=== PATIENT | male | born 1980 | race Caucasian/White ===

== ENCOUNTER 2017-01-18 16:41 | Inpatient (IN) | payer MEDICARE, OTHER ==
[~2017-01-18] VITALS: Ht 177.8 cm; Wt 92.1 kg
[~2017-01-18 16:41] MED LIST: BENZ1TAB PO; DEPA500T3 PO; FEXO180 PO; HALO5 PO; PAXI20TA26 PO; RANI150C PO; SERO400T3 OR
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
[2017-01-18 18:57] VITALS: BP 118/75; PULSE 81; RESP 17; O2SAT 99
[2017-01-18 19:10] LABS: AUTOMATED NEUTROPHIL # 5.8 TH/MM3 (1.8-7.7); BASOPHIL % 0.3 % (0.0-2.0); EOSINOPHIL # 0.1 TH/MM3 (0-0.4); EOSINOPHIL % 0.8 % (0.0-4.0); HEMATOCRIT 42.3 % (39.0-51.0); HEMO FLAGS DIFF FINAL; LYMPH % 17.9 % (9.0-44.0); LYMPHOCYTE # 1.4 TH/MM3 (1.0-4.8); MEAN CELL VOLUME 95.7 FL (80.0-100.0); MEAN CORPUSCULAR HEMOGLOBIN 33.2 PG (27.0-34.0); MEAN CORPUSCULAR HGB CONC 34.6 % (32.0-36.0); PLATELET COUNT 160 TH/MM3 (150-450); RED BLOOD COUNT 4.42 MIL/MM3 (4.50-5.90); RED CELL DISTRIBUTION WIDTH 13.1 % (11.6-17.2); WHITE BLOOD COUNT 7.9 TH/MM3 (4.0-11.0)
[2017-01-18 19:35] LABS: ANION GAP 7 MEQ/L (5-15)
[2017-01-18 19:37] LABS: ACETAMINOPHEN LESS THAN 2.0 MCG/ML (10.0-30.0); ALCOHOL LESS THAN 3 MG/DL (0-5); BICARBONATE 27.9 MEQ/L (21.0-32.0); BLOOD UREA NITROGEN 16 MG/DL (7-18); CHLORIDE 104 MEQ/L (98-107); GLOMERULAR FILTRATION RATE 122 ML/MIN (>89); SODIUM (NA) 139 MEQ/L (136-145)
[2017-01-18] MEDS ORDERED: DEPA500T PO (20:55)
[2017-01-18] MEDS ORDERED: TRAZ100T6 PO (20:55)
[2017-01-18] MEDS ORDERED: BENZ0.5T PO (20:55)
[2017-01-18] MEDS ORDERED: SERO200T PO (20:55)
[2017-01-18] MEDS ORDERED: CLON0.5T PO (20:55)
[2017-01-18] MEDS ORDERED: PARO20TA2 PO (20:55)
[2017-01-18 21:11] VITALS: BP 122/71; PULSE 95; RESP 18; TEMP 99; O2SAT 100
[2017-01-18] MEDS ORDERED: BENZTROPINE MESYLATE 2 MG TAB PO ONE (23:00)
[2017-01-18] MEDS ORDERED: clonazePAM 0.5 MG TAB PO ONE (23:00)
[2017-01-18] MEDS ORDERED: PARoxetine HCL 20 MG TAB PO ONE (23:00)
[2017-01-18] MEDS ORDERED: DIVALPROEX DR 500 MG TABEC PO ONE (23:00)
[2017-01-18] MEDS ORDERED: QUEtiapine FUMARATE 200 MG TAB PO ONE (23:15)
[2017-01-18] MEDS ORDERED: traZODone HCL 100 MG TAB PO ONE (23:15)
[2017-01-19 05:56] VITALS: BP 96/56; PULSE 64; RESP 16; TEMP 97.3; O2SAT 98
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
[2017-01-19] MEDS ORDERED: BENZTROPINE MESYLATE 2 MG TAB PO ONE ×2 (11:30→22:00)
[2017-01-19 18:40] VITALS: BP 130/69; PULSE 95; RESP 18; O2SAT 99
[2017-01-19] MEDS ORDERED: QUEtiapine FUMARATE 200 MG TAB PO SCH (21:00)
[2017-01-19] MEDS ORDERED: traZODone HCL 100 MG TAB PO SCH (21:00)
[2017-01-19] MEDS ORDERED: DIVALPROEX DR 500 MG TABEC PO ONE (22:00)
[2017-01-19] MEDS ORDERED: clonazePAM 0.5 MG TAB PO ONE (22:00)
[2017-01-19] MEDS ORDERED: QUEtiapine FUMARATE 200 MG TAB PO ONE (22:00)
[2017-01-19] MEDS ORDERED: traZODone HCL 100 MG TAB PO ONE (22:00)
[2017-01-20 02:27] VITALS: BP 109/65; PULSE 69; RESP 16; O2SAT 99
[2017-01-20 11:13] VITALS: BP 118/64; PULSE 80; RESP 18; O2SAT 98
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
[2017-01-20] MEDS ORDERED: MAGNESIUM HYDROXIDE SUSP 30 ML CUP PO PRN (11:30)
[2017-01-20] MEDS ORDERED: ACETAMINOPHEN 325 MG TAB PO PRN (11:30)
[2017-01-20 14:32] VITALS: BP 139/83; PULSE 98; RESP 17; TEMP 97.4; O2SAT 98
[2017-01-21 05:37] VITALS: BP 113/51; PULSE 69; RESP 17; TEMP 98.4; O2SAT 98
[2017-01-21] MEDS: ALUMINUM/MAGNESIUM/SIMETH 30 ML CUP PO PRN (09:23)
[2017-01-21] MEDS ORDERED: ACETAMINOPHEN 325 MG TAB PO PRN (11:30)
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
[2017-01-21] MEDS: FAMOTIDINE 20 MG TAB PO SCH ×2 (13:08→21:26)
[2017-01-21] MEDS: DIVALPROEX DR 500 MG TABEC PO SCH ×2 (13:08→21:26)
[2017-01-21 15:29] LABS: ANION GAP 6 MEQ/L (5-15); BICARBONATE 28.6 MEQ/L (21.0-32.0); BLOOD UREA NITROGEN 16 MG/DL (7-18); CHLORIDE 103 MEQ/L (98-107); GLOMERULAR FILTRATION RATE 122 ML/MIN (>89); POTASSIUM 4.1 MEQ/L (3.5-5.1); SODIUM (NA) 138 MEQ/L (136-145)
[2017-01-21 15:32] LABS: HDL CHOLESTEROL 46.6 MG/DL (40.0-60.0); LDL CHOLESTEROL 39 MG/DL (0-99)
[2017-01-21 16:29] LABS: HEMOGLOBIN A1b 0.7 %; HEMOGLOBIN Ao 87.4 %; HEMOGLOBIN F 1.1 %; HEMOGLOBIN LA1C 1.7 %
[2017-01-21 16:54] VITALS: BP 116/64; PULSE 82; RESP 18; TEMP 98.7; O2SAT 97
[2017-01-21] MEDS: traZODone HCL 100 MG TAB PO SCH (21:26)
[2017-01-21] MEDS: QUEtiapine FUMARATE 200 MG TAB PO SCH (21:26)
[2017-01-21] MEDS: BENZTROPINE MESYLATE 1 MG TAB PO SCH (21:26)
[2017-01-22 06:04] VITALS: BP 106/58; PULSE 67; RESP 16; TEMP 97.8; O2SAT 98
[2017-01-22] MEDS: PARoxetine HCL 20 MG TAB PO SCH (09:01)
[2017-01-22] MEDS: BENZTROPINE MESYLATE 1 MG TAB PO SCH ×2 (09:01→21:38)
[2017-01-22] MEDS: FAMOTIDINE 20 MG TAB PO SCH ×2 (09:01→21:38)
[2017-01-22] MEDS: DIVALPROEX DR 500 MG TABEC PO SCH ×2 (09:01→21:38)
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
--- NOTE | 2017-01-22 14:06 | HHI.PYPN ---
Subjective Remarks Patient seen in [place] with nurse Blu Del Angel counselor Laura. Chart reviewed patient compliant medications. Depakote level drawn this a.m. is 91. Patient is calm cooperative. He has been no behavior problems on the unit. Stating now that he wants to go back to his detention. Will have counselor attempt to reach detention to verify that they will accept him. Review of Systems Except as stated in HPI: all other systems reviewed are Neg Objective Alert: Yes [place]: Person Mood: Calm Affect: Restricted Memory Intact: Comment Hallucinations: Other Delusions: No Delusion Type: Other (denies) Suicidal: Ideation Homicidal: Ideation Insight/Judgment Very poor Labs Test 01/21/17 14:15 01/22/17 12:02 Blood Urea Nitrogen 16 MG/DL Creatinine 0.73 MG/DL Random Glucose 88 MG/DL Calcium Level 8.7 MG/DL Sodium Level 138 MEQ/L Potassium Level 4.1 MEQ/L Chloride Level 103 MEQ/L Carbon Dioxide Level 28.6 MEQ/L Anion Gap 6 MEQ/L Estimat Glomerular Filtration Rate 122 ML/MIN Hemoglobin A1c 4.7 % Triglycerides Level 104 MG/DL Cholesterol Level 106 MG/DL LDL Cholesterol 39 MG/DL HDL Cholesterol 46.6 MG/DL Cholesterol/HDL Ratio 2.27 RATIO Valproic Acid (Depakene) Level 91 MCG/ML Vitals/IOs Vital Signs Date Time Temp Pulse Resp B/P (MAP) Pulse Ox O2 Delivery O2 Flow Rate FiO2 01/22/17 06:04 97.8 67 16 106/58 (74) 98 01/20/17 02:27 Room Air Intake and Output 01/22/17 01/22/17 01/23/17 08:00 16:00 00:00 Intake Total 0 ml Balance 0 ml Assessment & Plan Problem List: (1) Adjustment disorder ICD Codes: F43.20 - Adjustment disorder, unspecified Status: Acute (2) Schizoaffective disorder ICD Codes: F25.9 - Schizoaffective disorder, unspecified Status: Chronic (3) Cognitive deficits ICD Codes: R41.89 - Other symptoms and signs involving cognitive functions and awareness Status: Chronic Assessment & Plan Estimated LOS: days patient somewhat calmer, now showing no significant behavioral problems. His Depakote level drawn this a.m. is 91. We are Attempting to reach detention to verify his placement there Justification for Cont. Inpt. At this time patient will decompensate if not placed in an appropriate level of care Discharge Planning To be determined Problem Qualifiers (1) Adjustment disorder: Qualified Codes: F43.25 - Adjustment disorder with mixed disturbance of emotions and conduct (2) Schizoaffective disorder: Qualified Codes: F25.8 - Other schizoaffective disorders Prince Fierro MD Jan 22, 2017 14:06
[2017-01-22 18:19] VITALS: BP 127/79; PULSE 82; RESP 16; TEMP 98; O2SAT 98
[2017-01-22] MEDS: QUEtiapine FUMARATE 200 MG TAB PO SCH (21:38)
[2017-01-22] MEDS: traZODone HCL 100 MG TAB PO SCH (21:38)
[2017-01-23 06:13] VITALS: BP 114/57; PULSE 88; RESP 16; TEMP 97.3; O2SAT 100
[2017-01-23 06:47] VITALS: BP 114/57; PULSE 88; RESP 16; TEMP 97.3; O2SAT 100
[2017-01-23] MEDS: FAMOTIDINE 20 MG TAB PO SCH ×2 (09:20→21:45)
[2017-01-23] MEDS: DIVALPROEX DR 500 MG TABEC PO SCH ×2 (09:20→21:46)
[2017-01-23] MEDS: PARoxetine HCL 20 MG TAB PO SCH (09:20)
[2017-01-23] MEDS: BENZTROPINE MESYLATE 1 MG TAB PO SCH ×2 (09:20→21:46)
[2017-01-23 16:00] VITALS: BP 118/77; PULSE 61; RESP 17; TEMP 97.6; O2SAT 100
--- NOTE | 2017-01-23 16:52 | HHI.PYPN ---
Subjective Remarks Patient was seen and case discussed with nursing. Patient is behaving well on the unit. Pleasant and cooperative with exam. Cognitive delay remains evidence. Poor insight into admission, flat affect, apathetic Objective Alert: Yes [place]: Person Mood: Calm Affect: Flat Memory Intact: Comment Hallucinations: Other Delusions: No Delusion Type: Other (denies) Suicidal: Ideation Homicidal: Ideation Insight/Judgment Poor Vitals/IOs Vital Signs Date Time Temp Pulse Resp B/P (MAP) Pulse Ox O2 Delivery O2 Flow Rate FiO2 01/23/17 06:47 97.3 88 16 114/57 (76) 100 01/20/17 02:27 Room Air Assessment & Plan Problem List: (1) Adjustment disorder ICD Codes: F43.20 - Adjustment disorder, unspecified Status: Acute (2) Cognitive deficits ICD Codes: R41.89 - Other symptoms and signs involving cognitive functions and awareness Status: Chronic (3) Schizoaffective disorder ICD Codes: F25.9 - Schizoaffective disorder, unspecified Status: Chronic Assessment & Plan Continue current treatment plan Justification for Cont. Inpt. Patient would decompensate in a less restrictive setting Problem Qualifiers (1) Adjustment disorder: Qualified Codes: F43.25 - Adjustment disorder with mixed disturbance of emotions and conduct (2) Schizoaffective disorder: Qualified Codes: F25.8 - Other schizoaffective disorders Otis Perea DO Jan 23, 2017 16:52
[2017-01-23 18:00] VITALS: BP 113/76; PULSE 78; RESP 18; TEMP 97.5; O2SAT 100
[2017-01-23] MEDS: traZODone HCL 100 MG TAB PO SCH (21:46)
[2017-01-23] MEDS: QUEtiapine FUMARATE 200 MG TAB PO SCH (21:46)
[2017-01-24 06:32] VITALS: BP 105/58; PULSE 63; RESP 17; TEMP 98.2; O2SAT 98
[2017-01-24] MEDS: PARoxetine HCL 20 MG TAB PO SCH (09:42)
[2017-01-24] MEDS: DIVALPROEX DR 500 MG TABEC PO SCH ×2 (09:42→20:20)
[2017-01-24] MEDS: BENZTROPINE MESYLATE 1 MG TAB PO SCH ×2 (09:42→20:20)
[2017-01-24] MEDS: FAMOTIDINE 20 MG TAB PO SCH ×2 (09:42→20:21)
[2017-01-24] MEDS: ALUMINUM/MAGNESIUM/SIMETH 30 ML CUP PO PRN ×2 (10:51→17:43)
--- NOTE | 2017-01-24 16:36 | HHI.PYPN ---
Subjective Remarks Patient was seen and case discussed nursing. Patient is complaining of abdominal pain not relieved with Maalox. Says he had a bowel movement. He has a erythematous rash on his face. Remains social and interactive. Insight remains poor. Cognitive deficits are evident. Behaving well on the unit Objective Alert: Yes [place]: Person Mood: Calm Affect: Restricted Memory Intact: Comment Hallucinations: Other Delusions: No Delusion Type: Other (denies) Suicidal: Ideation Homicidal: Ideation Insight/Judgment Poor Vitals/IOs Vital Signs Date Time Temp Pulse Resp B/P (MAP) Pulse Ox O2 Delivery O2 Flow Rate FiO2 01/24/17 06:32 98.2 63 17 105/58 (74) 98 Assessment & Plan Problem List: (1) Adjustment disorder ICD Codes: F43.20 - Adjustment disorder, unspecified Status: Acute (2) Cognitive deficits ICD Codes: R41.89 - Other symptoms and signs involving cognitive functions and awareness Status: Chronic (3) Schizoaffective disorder ICD Codes: F25.9 - Schizoaffective disorder, unspecified Status: Chronic Assessment & Plan Medicine consults Justification for Cont. Inpt. Patient would decompensate in a less restrictive setting Problem Qualifiers (1) Adjustment disorder: Qualified Codes: F43.25 - Adjustment disorder with mixed disturbance of emotions and conduct (2) Schizoaffective disorder: Qualified Codes: F25.8 - Other schizoaffective disorders Otis Perea DO Jan 24, 2017 16:36
[2017-01-24] MEDS: QUEtiapine FUMARATE 200 MG TAB PO SCH (20:20)
[2017-01-24] MEDS: traZODone HCL 100 MG TAB PO SCH (20:20)
[2017-01-25 06:37] VITALS: BP 102/59; PULSE 62; RESP 16; TEMP 97.8; O2SAT 99
[2017-01-25] MEDS: FAMOTIDINE 20 MG TAB PO SCH ×2 (08:42→21:14)
[2017-01-25] MEDS: BENZTROPINE MESYLATE 1 MG TAB PO SCH ×2 (08:42→21:14)
[2017-01-25] MEDS: PARoxetine HCL 20 MG TAB PO SCH (08:42)
[2017-01-25] MEDS: DIVALPROEX DR 500 MG TABEC PO SCH ×2 (08:43→21:00)
--- NOTE | 2017-01-25 16:18 | HHI.PYPN ---
Subjective Remarks Patient was seen and case discussed with nursing. Patient is pleasant and cooperative with exam today. No longer has abdominal pain. Medicine mistreating his rash. Behaving well on the unit. No verbal or physical outbursts. Social on the unit. Eating and sleeping well. Compliant with medications Objective Alert: Yes [place]: Person, Place Mood: Calm Affect: Blunted Memory Intact: Comment Hallucinations: Other Delusions: No Delusion Type: Other (denies) Suicidal: Ideation Homicidal: Ideation Insight/Judgment Poor Vitals/IOs Vital Signs Date Time Temp Pulse Resp B/P (MAP) Pulse Ox O2 Delivery O2 Flow Rate FiO2 01/25/17 06:37 97.8 62 16 102/59 (73) 99 Assessment & Plan Problem List: (1) Adjustment disorder ICD Codes: F43.20 - Adjustment disorder, unspecified Status: Acute (2) Cognitive deficits ICD Codes: R41.89 - Other symptoms and signs involving cognitive functions and awareness Status: Chronic (3) Schizoaffective disorder ICD Codes: F25.9 - Schizoaffective disorder, unspecified Status: Chronic Assessment & Plan Continue current treatment plan Justification for Cont. Inpt. Patient would decompensate in a less restrictive setting Problem Qualifiers (1) Adjustment disorder: Qualified Codes: F43.25 - Adjustment disorder with mixed disturbance of emotions and conduct (2) Schizoaffective disorder: Qualified Codes: F25.8 - Other schizoaffective disorders Otis Perea DO Jan 25, 2017 16:18
--- NOTE | 2017-01-25 16:39 | PD.CONS ---
[facility] Consult Requested By Primary Care Physician No Primary Care Physician Diagnoses: History of Present Illness Mr. Dobson is a 36-year-old male. Consult placed secondary to abdominal pain and facial rash. Patient expresses concerns over facial rash, but does not express any abdominal pain when seen. He says a facial rash is not new, but chronic. He has not tried a treatment for this. The rash is focused at his scalp, beer, eyebrows, and nasal bridge. Rash reported on the patient's body. Mild cognitive deficit chronically for life. History is slightly inhibited. Patient does know that he's had a gallbladder surgery. She reports no chronic medical problems. Review of Systems Constitutional: DENIES: Fever, Chills, Dizziness, Change in appetite, Night Sweats Endocrine: DENIES: Heat/cold intolerance Eyes: DENIES: Blurred vision, Diplopia, Eye inflammation, Eye pain Ears, nose, mouth, throat: DENIES: Tinnitus, Hearing loss, Vertigo Respiratory: DENIES: Apneas, Cough, Wheezing, Sputum production Cardiovascular: DENIES: Chest pain, Palpitations, Syncope Gastrointestinal: DENIES: Abdominal pain, Black stools, Bloody stools Musculoskeletal: DENIES: Joint pain, Muscle aches, Stiffness Integumentary: COMPLAINS OF: Rash, DENIES: Abnormal pigmentation Hematologic/lymphatic: DENIES: Bruising Immunologic/allergic: DENIES: Eczema Neurologic: DENIES: Abnormal gait, Headache Psychiatric: DENIES: Anxiety, Confusion Past Family Social History Allergies: Coded Allergies: No Known Allergies (Verified , 10/20/12) Past Medical History Chronic cognitive deficit Past Surgical History Cholecystectomy Reported Medications Reported Meds & Active Scripts Active Reported Clonazepam 0.5 Mg Tab 0.5 Mg PO TID Seroquel (Quetiapine Fumarate) 200 Mg Tab 200 Mg PO HS Trazodone (Trazodone HCl) 100 Mg Tablet 100 Mg PO HS Benztropine (Benztropine Mesylate) 0.5 Mg Tab 2 Mg PO BID Depakote DR (Divalproex Sodium) 500 Mg Tabdr 500 Mg PO BID Paroxetine (Paroxetine HCl) 20 Mg Tab 20 Mg PO DAILY Active Ordered Medications Administered Medications Medications (Trade) Dose Ordered Sig/Archie Route PRN Reason Start Time Stop Time Status Last Admin Dose Admin Magnesium Hydroxide (Milk Of Magnesia Liq) 30 ml DAILY PRN PO CONSTIPATION 01/20/17 11:30 01/23/17 14:20 Al Hydrox/Mg Hydrox/Simethicone (Mag-Al Plus Susp Liq) 30 ml Q6H PRN PO DYSPEPSIA 01/20/17 11:30 01/24/17 17:43 Benztropine Mesylate (Cogentin) 2 mg BID PO 01/21/17 21:00 01/25/17 08:42 Divalproex Sodium (Depakote Dr) 500 mg BID PO 01/21/17 11:30 01/25/17 08:43 Paroxetine HCl (Paxil) 20 mg DAILY PO 01/22/17 09:00 01/25/17 08:42 Quetiapine Fumarate (SEROquel) 200 mg HS PO 01/21/17 21:00 01/24/17 20:20 Trazodone HCl (Desyrel) 100 mg HS PO 01/21/17 21:00 01/24/17 20:20 Famotidine (Pepcid) 20 mg BID PO 01/21/17 13:00 01/25/17 08:42 Family History Patient reports no positive family history Social History Patient says that he smokes, he cannot quantify No reports of alcohol abuse from the patient No reports of illicit drug use from the patient Physical Exam Vital Signs Vital Signs Date Time Temp Pulse Resp B/P (MAP) Pulse Ox O2 Delivery O2 Flow Rate FiO2 01/25/17 06:37 97.8 62 16 102/59 (73) 99 Physical Exam GENERAL: NAD, A&Ox3 HEAD: Normocephalic. NECK: Supple, trachea midline. No lymphadenopathy. EYES: No scleral icterus. No injection or drainage. CARDIOVASCULAR: Regular rate and rhythm without murmurs, gallops, or rubs. RESPIRATORY: Breath sounds equal bilaterally. No accessory muscle use. GASTROINTESTINAL: Abdomen soft, non-tender, nondistended. MUSCULOSKELETAL: No cyanosis, or edema. SKIN: Warm and dry. Erythematous skin at areas of villalobos, scalp, eyebrows, and malar pattern nasal bridge. Affixed to these areas are small flaky patches of skin. NEURO: No focal neurological deficitis. Result Diagram: 01/21/17 4784 Assessment and Plan Problem List: (1) Seborrheic dermatitis ICD Code: L21.9 - Seborrheic dermatitis, unspecified (2) Cognitive deficits ICD Code: R41.89 - Other symptoms and signs involving cognitive functions and awareness Status: Chronic (3) Schizoaffective disorder ICD Code: F25.9 - Schizoaffective disorder, unspecified Status: Chronic (4) Adjustment disorder ICD Code: F43.20 - Adjustment disorder, unspecified Status: Acute (5) Medical clearance for psychiatric admission ICD Code: Z00.8 - Encounter for other general examination Status: Acute Assessment and Plan Assessment and plan 36-year-old male, consult for rash Seborrheic dermatitis Start topical 1% selenium sulfide shampoo to apply to scalp eyebrows villalobos and face Last solution to sit on affected areas for 2-3 minutes at each dose Repeat visit physical evaluation in 2-3 days Schizoaffective disorder Chronic cognitive deficits Adjustment disorder Continue inpatient psychiatric care DVT prophylaxis Patient is ambulatory and active Problem Qualifiers (1) Schizoaffective disorder: Qualified Codes: F25.8 - Other schizoaffective disorders (2) Adjustment disorder: Qualified Codes: F43.25 - Adjustment disorder with mixed disturbance of emotions and conduct Hardy Beverly MD Jan 25, 2017 16:39
[2017-01-25 17:46] VITALS: BP 116/71; PULSE 68; RESP 17; TEMP 96.9; O2SAT 98
[2017-01-25] MEDS: traZODone HCL 100 MG TAB PO SCH (21:14)
[2017-01-25] MEDS: QUEtiapine FUMARATE 200 MG TAB PO SCH (21:14)
[2017-01-26 06:18] VITALS: BP 105/58; PULSE 64; RESP 17; TEMP 98.1; O2SAT 98
[2017-01-26] MEDS ORDERED: SELENIUM SULFIDE 1% SHAMPOO 207 ML BOTTLE TOPICAL SCH (09:00)
[2017-01-26] MEDS: DIVALPROEX DR 500 MG TABEC PO SCH (09:00)
[2017-01-26] MEDS: FAMOTIDINE 20 MG TAB PO SCH (09:07)
[2017-01-26] MEDS: PARoxetine HCL 20 MG TAB PO SCH (09:08)
[2017-01-26] MEDS: BENZTROPINE MESYLATE 1 MG TAB PO SCH (09:08)
[2017-01-26 09:50] LABS: BASOPHIL % 0.3 % (0.0-2.0); EOSINOPHIL # 0.1 TH/MM3 (0-0.4); HEMATOCRIT 43.8 % (39.0-51.0); HEMO FLAGS DIFF FINAL; LYMPH % 31.8 % (9.0-44.0); LYMPHOCYTE # 1.7 TH/MM3 (1.0-4.8); MEAN CELL VOLUME 94.8 FL (80.0-100.0); MEAN CORPUSCULAR HEMOGLOBIN 33.1 PG (27.0-34.0); MEAN CORPUSCULAR HGB CONC 34.9 % (32.0-36.0); MONO % 10.6 % (0.0-8.0); NEUT % 55.3 % (16.0-70.0); PLATELET COUNT 174 TH/MM3 (150-450); RED BLOOD COUNT 4.62 MIL/MM3 (4.50-5.90); RED CELL DISTRIBUTION WIDTH 12.9 % (11.6-17.2); WHITE BLOOD COUNT 5.4 TH/MM3 (4.0-11.0)
[2017-01-26 10:01] LABS: ANION GAP 4 MEQ/L (5-15); AST (GOT) 9 U/L (15-37); BICARBONATE 29.8 MEQ/L (21.0-32.0); BLOOD UREA NITROGEN 12 MG/DL (7-18); CHLORIDE 103 MEQ/L (98-107); GLOMERULAR FILTRATION RATE 101 ML/MIN (>89); SODIUM (NA) 137 MEQ/L (136-145)
[2017-01-26 10:15] LABS: ALKALINE PHOSPHATASE 58 U/L (45-117); ALT (GPT) 15 U/L (12-78); TOTAL BILIRUBIN ADULT 1.1 MG/DL (0.2-1.0)
[2017-01-26] MEDS ORDERED: FAMO20TA2 PO (12:25)
[2017-01-26] MEDS ORDERED: SELS1SHA12 TOPICAL (12:25)
--- NOTE | 2017-01-26 12:25 | HHI.DS ---
Psychiatry Discharge Summary Inpatient Psychiatric care?: Yes Advance Directive: No Reason Not Provided: Declined Mental Health AdvanceDirective: No Health Care Proxy: No Admission Admission Date Jan 20, 2017 at 11:32 Admission Diagnosis: (1) Adjustment disorder ICD Code: F43.20 - Adjustment disorder, unspecified (2) Cognitive deficits ICD Code: R41.89 - Other symptoms and signs involving cognitive functions and awareness (3) Schizoaffective disorder ICD Code: F25.9 - Schizoaffective disorder, unspecified Brief History Patient is a 36-year-old white male who comes here under Kitchen act signed by Jayne GOLDBERG dated January 20 1400 hrs. that document reviewed essentially stating adjustment disorder intellectual deficit. Has been threatening to kill staff at retirement has been irritable in his mentation believes she is capable of leaving the hospital and live his own life. Patient seen screened in the ED urine toxicology negative Depakote blood level of 40. Of interest patient was initially seen by Jayne Tsang the day prior under Kitchen act from his retirement that time it appears to been some impulsive verbalizations. She did lift the Kitchen act in anticipation of discharge. However it was noted that the patient while talking to the staff at the retirement threatening to kill the staff person and other people there at that time she reinitiated the Kitchen act leading to his hospitalization here. Of interest upon review of EMR patient was hospitalized here overnight 10/20/12 through , seen by Dr. Sadiq Contreras diagnosis of schizoaffective disorder and mental retardation. At the present time patient sitting quietly in exam room nurse Bree. Patient sitting quietly though markedly vigilant guarded and somewhat nervous the cognitive deficits are noticed in his responses that are quite childlike repetitive basically stating "can I go home now". Patient did acknowledge being angry and saying what is documented. He said was upset because the staff would not allow him to keep his cigarettes. At this time he denies suicidality homicidality voices or visions. States is been compliant with his medication. However considering the severity of the statements that he made I feel he does meet criteria at this time for further inpatient psychiatric hospitalization under the Kitchen act. I also feel he does not have capacity to sign for admission offer medication thus I'll ask for healthcare surrogate and guardian advocate. We'll continue his medications per the noted conciliation. Repeat Depakote level tomorrow morning. Hopeless to be short stay and he can return to his retirement Tobacco Use In Past 30 Days: 5 or More Cigarettes/Day Alcohol Use: Never Hospital Course Patient was admitted to a locked, inpatient psychiatric unit. A general medical consultation was obtained. Appropriate precautions were in place throughout patient's hospital stay. Patient was seen and examined on the unit by psychiatry and also visited by counselor. Psychiatric medications were adjusted; patient's home Klonopin was held. Patient tolerated medications well without side effects. There was no evidence of any suicidality or homicidality on the inpatient unit. No significant behavioral disturbance was noted on the inpatient unit. Counselor has arranged for patient to return back to referring facility. On the day of discharge: Patient seen and examined with nurse in coverage for Dr. Fierro. Chart reviewed. Case discussed in treatment team with nurse, occupational therapist and counselor. No behavioral issues overnight per nursing staff. On my examination today, the patient describes his mood as "happy" and I can elicit no depressive or hypomanic/manic symptoms. He denies any suicidal or homicidal ideation, intent or plan. Denies any audiovisual hallucinations and I can elicit no delusional beliefs. Denies any side effects from medications. No physical complaints. Weighing the relevant factors and based on the available evidence, I police judge that the patient is at lower imminent risk of harm to self or others from mental illness and his level of function is adequate for planned level of outpatient care. There is likely a component of chronic risk related to impulsivity associated with his cognitive deficits, but this risk would not be further ameliorated by a longer inpatient psychiatric hospital stay. Patient has maximized benefit from this inpatient psychiatric hospital stay and will be discharged back to facility today with psychiatric follow-up as arranged by counselor. Patient is also to follow-up with primary care. Patient to return to psychiatric emergency room for any concerning psychiatric symptoms. Results Blood Pressure 105 / 58 Vital Signs Date Time Temp Pulse Resp B/P (MAP) Pulse Ox O2 Delivery O2 Flow Rate FiO2 01/26/17 06:18 98.1 64 17 105/58 (74) 98 Laboratory Tests Test 01/26/17 08:51 Monocytes (%) (Auto) 10.6 % (0.0-8.0) Calcium Level 8.4 MG/DL (8.5-10.1) Aspartate Amino Transf (AST/SGOT) 9 U/L (15-37) Total Bilirubin 1.1 MG/DL (0.2-1.0) Anion Gap 4 MEQ/L (5-15) Laboratory Results Test 01/21/17 14:15 01/22/17 12:02 Cholesterol Level 106 MG/DL (120-200) HDL Cholesterol 46.6 MG/DL (40.0-60.0) Hemoglobin A1c 4.7 % (4.3-6.0) LDL Cholesterol 39 MG/DL (0-99) Triglycerides Level 104 MG/DL (42-150) Valproic Acid (Depakene) Level 91 MCG/ML (50-100) Summary of Procedures None done Imaging None done Pending results at discharge: No Medications # of Antipsychotic meds at D/C: 1 Approp Antipsych med options 1 - Minimum of three failed multiple trials of monotherapy. 2 - Documented plan to taper to monotherapy due to previous use of multiple meds OR cross-taper in progress at D/C. 3 - Documentation of augmentation of Clozapine. 4 - Justification other than those listed in allowable values 1-3, document here : Discharge Discharge Date: Jan 26, 2017 Discharge Diagnosis: (1) Adjustment disorder Diagnosis: Principal (resolved) ICD Code: F43.20 - Adjustment disorder, unspecified Status: Acute (2) Cognitive deficits Diagnosis: Secondary ICD Code: R41.89 - Other symptoms and signs involving cognitive functions and awareness Status: Chronic (3) Schizoaffective disorder Diagnosis: Secondary (stable) ICD Code: F25.9 - Schizoaffective disorder, unspecified Status: Chronic Mental Status Exam at Disch Patient is casually dressed. Patient is fairly well groomed. Patient is awake and alert and oriented to person and hospital at least. No evidence of delirium. No motor abnormalities appreciated. Speech is within normal limits for rate, tone, volume. Language and fund of knowledge reduced. Mood is good. Affect is blunted and a little childlike. Thought process linear. No delusions elicited. Denies audiovisual hallucinations and does not appear internally stimulated. Denies suicidal or homicidal ideation, intent, or plan. Insight and judgment likely chronically poor. Pt Condition on Discharge: Stable Discharge Disposition: ACLF/CUSTODIAL Discharge Instructions Diet Instructions: As Tolerated, No Restrictions Activities you can perform: Weight Bearing as Alphonse Scheduled Appointment: as per counselor's notes New Medications: Famotidine (Famotidine) 20 Mg Tab 20 MG PO BID for Health for 15 Days, #30 TAB 1 Refill Selenium Sulfide (Selsun Blue Daily) 1 % Sha 1 APPLIC TOPICAL DAILY for Health, #1 BOTTLE 0 Refills Continued Medications: Benztropine (Benztropine) 0.5 Mg Tab 2 MG PO BID, #60 TAB [address] (Depakote DR) 500 Mg Tabdr 500 MG PO BID for Control Seizures, #60 TAB 0 Refills Paroxetine (Paroxetine) 20 Mg Tab 20 MG PO DAILY, #30 TAB 0 Refills Quetiapine (Seroquel) 200 Mg Tab 200 MG PO HS, #30 TAB 0 Refills Trazodone (Trazodone) 100 Mg Tablet 100 MG PO HS for Control Depression, #30 TAB 0 Refills Discontinued Medications: Clonazepam (Clonazepam) 0.5 Mg Tab 0.5 MG PO TID, #90 TAB 0 Refills Discharge Time > 30 minutes Discharge/Advance Care Plan Health Problems: (1) Adjustment disorder (2) Cognitive deficits (3) Schizoaffective disorder Goals to promote your health * To prevent worsening of your condition and complications * To maintain your health at the optimal level Directions to meet your goals Take your medications as prescribed Follow your dietary instruction Follow activity as directed Keep your appointments as scheduled Take your immunizations and boosters as scheduled If your symptoms worsen call your PCP, if no PCP go to Urgent Care Center or Emergency Room For 30/11 questions related to your inpatient stay or results of tests pending at discharge, please contact Dr. Aditya Concepcion at Smoking is Dangerous to Your Health. Avoid second hand smoking Problem Qualifiers (1) Adjustment disorder: Qualified Codes: F43.25 - Adjustment disorder with mixed disturbance of emotions and conduct (2) Schizoaffective disorder: Qualified Codes: F25.8 - Other schizoaffective disorders Aditya Concepcion MD Jan 26, 2017 12:25
== END 2017-01-26 16:28 | disposition home or self-care (01) | DRG 882 ==
LOC: NEPD 16:41 → NEDA 01-20 11:32 → H260 01-20 13:10
PROVIDERS: ADMIT Psychiatry & Neurology Psychiatry; ATTEND Psychiatry & Neurology Psychiatry
DX: F43.25 Adjustment disorder with mixed disturbance of emotions and conduct (principal); R45.851 Suicidal ideations; F25.9 Schizoaffective disorder, unspecified; F79 Unspecified intellectual disabilities; F17.210 Nicotine dependence, cigarettes, uncomplicated; R41.89 Other symptoms and signs involving cognitive functions and awareness; R10.9 Unspecified abdominal pain; L21.9 Seborrheic dermatitis, unspecified
CPT/HCPCS: 80048; 80053; 80061; 80164; 80307; 83036; 83690; 84443; 85025

== ENCOUNTER 2017-06-11 14:33 | Inpatient (IN) | payer MEDICARE, OTHER ==
[~2017-06-11] VITALS: Ht 175.3 cm; Wt 89.7 kg
[~2017-06-11 14:33] MED LIST changes: +BENZ0.5T PO; -BENZ1TAB PO; +DEPA500T PO; -DEPA500T3 PO; +FAMO20TA2 PO; -FEXO180 PO; -HALO5 PO; +PARO20TA2 PO; -PAXI20TA26 PO; -RANI150C PO; +SELS1SHA12 TOPICAL; +SERO200T PO; -SERO400T3 OR; +TRAZ100T10 PO
[2017-06-11 15:16] VITALS: BP 113/76; PULSE 81; RESP 17; TEMP 97.9; O2SAT 97
[2017-06-11 16:12] LABS: ALBUMIN 3.8 GM/DL (3.4-5.0); AST (GOT) 15 U/L (15-37); BICARBONATE 28.7 MEQ/L (21.0-32.0); BLOOD UREA NITROGEN 10 MG/DL (7-18); CALCIUM 8.9 MG/DL (8.5-10.1); CHLORIDE 107 MEQ/L (98-107); CREATININE 0.73 MG/DL (0.60-1.30); GLOMERULAR FILTRATION RATE 122 ML/MIN (>89); GLUCOSE,RANDOM 94 MG/DL (74-106); SODIUM (NA) 141 MEQ/L (136-145)
[2017-06-11 16:13] LABS: ALT (GPT) 16 U/L (12-78); AUTOMATED NEUTROPHIL # 4.8 TH/MM3 (1.8-7.7); BASOPHIL % 0.3 % (0.0-2.0); EOSINOPHIL # 0.1 TH/MM3 (0-0.4); EOSINOPHIL % 1.5 % (0.0-4.0); HEMATOCRIT 40.7 % (39.0-51.0); HEMOGLOBIN 14.3 GM/DL (13.0-17.0); LYMPH % 18.8 % (9.0-44.0); LYMPHOCYTE # 1.3 TH/MM3 (1.0-4.8); MEAN CELL VOLUME 94.3 FL (80.0-100.0); MEAN CORPUSCULAR HEMOGLOBIN 33.2 PG (27.0-34.0); MEAN CORPUSCULAR HGB CONC 35.2 % (32.0-36.0); MEAN PLATELET VOLUME 7.7 FL (7.0-11.0); MONO % 8.1 % (0.0-8.0); MONOCYTE # 0.5 TH/MM3 (0-0.9); NEUT % 71.3 % (16.0-70.0); PLATELET COUNT 210 TH/MM3 (150-450); RED BLOOD COUNT 4.32 MIL/MM3 (4.50-5.90); WHITE BLOOD COUNT 6.7 TH/MM3 (4.0-11.0)
[2017-06-11 16:22] LABS: ALKALINE PHOSPHATASE 67 U/L (45-117); TOTAL BILIRUBIN ADULT 0.8 MG/DL (0.2-1.0); TOTAL PROTEIN 6.9 GM/DL (6.4-8.2)
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
[2017-06-11 18:02] VITALS: BP 133/77; PULSE 89; RESP 18; TEMP 98.5; O2SAT 97
[2017-06-11] MEDS ORDERED: LORazepam 2 MG/ML VIAL IM PRN (23:45)
[2017-06-11] MEDS ORDERED: ALUMINUM/MAGNESIUM/SIMETH 30 ML CUP PO PRN (23:45)
[2017-06-11] MEDS ORDERED: traZODone HCL 50 MG TAB PO PRN (23:45)
[2017-06-11] MEDS ORDERED: MAGNESIUM HYDROXIDE SUSP 30 ML CUP PO PRN (23:45)
[2017-06-11 23:46] VITALS: BP 108/71; PULSE 68; RESP 17; TEMP 99; O2SAT 98
[2017-06-12 06:18] VITALS: BP 101/59; PULSE 68; RESP 16; TEMP 97.9; O2SAT 98
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
[2017-06-12] MEDS: LORazepam 1 MG TAB PO PRN (08:47)
[2017-06-12] MEDS: DIVALPROEX DR 500 MG TABEC PO SCH ×2 (08:47→20:15)
[2017-06-12] MEDS: BENZTROPINE MESYLATE 2 MG TAB PO SCH ×2 (08:47→20:15)
[2017-06-12] MEDS: PARoxetine HCL 20 MG TAB PO SCH (08:47)
[2017-06-12] MEDS: FAMOTIDINE 20 MG TAB PO SCH ×2 (08:47→20:15)
[2017-06-12 13:15] LABS: HEMOGLOBIN A1C 4.8 % (4.3-6.0)
[2017-06-12] MEDS: ACETAMINOPHEN 325 MG TAB PO PRN (17:42)
[2017-06-12 18:16] VITALS: BP 139/79; PULSE 79; RESP 18; TEMP 97.8; O2SAT 100
[2017-06-12] MEDS: traZODone HCL 100 MG TAB PO SCH (20:15)
[2017-06-12] MEDS: QUEtiapine FUMARATE 200 MG TAB PO SCH (20:15)
[2017-06-13 05:59] VITALS: BP 113/63; PULSE 66; RESP 17; TEMP 97.8
[2017-06-13] MEDS: PARoxetine HCL 20 MG TAB PO SCH (10:02)
[2017-06-13] MEDS: BENZTROPINE MESYLATE 2 MG TAB PO SCH ×2 (10:03→20:47)
[2017-06-13] MEDS: DIVALPROEX DR 500 MG TABEC PO SCH ×2 (10:03→20:46)
[2017-06-13] MEDS: FAMOTIDINE 20 MG TAB PO SCH ×2 (10:03→20:47)
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
[2017-06-13 17:30] VITALS: BP 132/75; PULSE 87; RESP 17; TEMP 98.8; O2SAT 98
[2017-06-13] MEDS: ACETAMINOPHEN 325 MG TAB PO PRN (19:40)
[2017-06-13] MEDS: traZODone HCL 100 MG TAB PO SCH (20:47)
[2017-06-13] MEDS: QUEtiapine FUMARATE 200 MG TAB PO SCH (20:47)
[2017-06-14 05:48] VITALS: BP 102/58; PULSE 72; RESP 16; TEMP 97.8; O2SAT 100
[2017-06-14] MEDS: BENZTROPINE MESYLATE 2 MG TAB PO SCH ×2 (08:16→20:55)
[2017-06-14] MEDS: FAMOTIDINE 20 MG TAB PO SCH ×2 (08:16→20:55)
[2017-06-14] MEDS: PARoxetine HCL 20 MG TAB PO SCH (08:16)
[2017-06-14] MEDS: DIVALPROEX DR 500 MG TABEC PO SCH ×2 (08:16→20:55)
[2017-06-14 16:08] VITALS: BP 125/85; PULSE 74; RESP 18; TEMP 99; O2SAT 100
--- NOTE | 2017-06-14 20:08 | HHI.PYPN ---
Subjective Remarks Patient seen for follow up; chart reviewed. Discussion with nursing staff reported that patient was moved from unit 2600 to 2700 over the weekend due to patient becoming aggressive. Patient also in wheelchair due to recent report that he has difficulty walking although noted to be able to transfer to the toilet and able to stand. Patient was seen in wheelchair in room, noted to be guarded. He states that he does not recall the events that brought him into the hospital nor the event that had him transferred to the 2700 unit. He states remembering that he had received an IM injection. He denies any mood symptom nor any perceptual disturbances nor SI or HI. Patient agrees to be mindful of his behavior on the unit. Review of Systems Except as stated in HPI: all other systems reviewed are Neg Mental Status Examination Appearance: Appropriate Consciousness: Alert Orientation: Person, Place Motor Activity: Normal gait Speech: Hesitant, Slow Language: Adequate Fund of Knowledge: Adequate Attention and Concentration: Adequate Memory: Unremarkable Mood: Appropriate Affect: Flat Thought Process & Associations: Other (concrete) Thought Content: Thought blocking Hallucination Type: None Delusion Type: None Suicidal Ideation: No Suicidal Plan: No Suicidal Intention: No Homicidal Ideation: No Homicidal Plan: No Homicidal Intention: No Insight: Poor Judgment: Poor Results Vitals/IOs Vital Signs Date Time Temp Pulse Resp B/P (MAP) Pulse Ox O2 Delivery O2 Flow Rate FiO2 06/14/17 16:08 99.0 74 18 125/85 (98) 100 06/11/17 23:46 Room Air Assessment & Plan Problem List: (1) Adjustment disorder with disturbance of conduct ICD Codes: F43.24 - Adjustment disorder with disturbance of conduct Assessment & Plan Patient at this time noted to continue with some thought blocking, guarded, with poor impulse control and judgment. Continue with current treatment. Continue to monitor mood and behavior. PT consult requested. [place] planning in progress. Justification for Cont. Inpt. At risk for further decompensation at lower level of care. Martinez Chacon MD Jun 14, 2017 20:08
[2017-06-14] MEDS: QUEtiapine FUMARATE 200 MG TAB PO SCH (20:55)
[2017-06-14] MEDS: traZODone HCL 100 MG TAB PO SCH (20:55)
[2017-06-15 05:42] VITALS: BP 115/68; PULSE 68; RESP 18; TEMP 97.8; O2SAT 96
[2017-06-15] MEDS: DIVALPROEX DR 500 MG TABEC PO SCH ×2 (08:20→21:04)
[2017-06-15] MEDS: BENZTROPINE MESYLATE 2 MG TAB PO SCH ×2 (08:20→21:04)
[2017-06-15] MEDS: PARoxetine HCL 20 MG TAB PO SCH (08:20)
[2017-06-15] MEDS: FAMOTIDINE 20 MG TAB PO SCH ×2 (08:21→21:04)
--- NOTE | 2017-06-15 16:46 | HHI.PYPN ---
Subjective Remarks Patient seen and examined with nurse in coverage for Dr. Chacon. Chart reviewed. I note the patient has been evaluated by physical therapy. I note that counselor supervisor graphite has obtained collateral that patient's reported difficulties with walking are possibly attention seeking. Case discussed with nursing staff. On my examination today, patient remains guarded. He denies any SI or HI. Denies any AVH. No reported side effects from medications. No physical complaints. Review of Systems ROS Limitations: Poor Historian Except as stated in HPI: all other systems reviewed are Neg Mental Status Examination Appearance: Appropriate Consciousness: Alert Orientation: Person, Place Motor Activity: Other (no motor abnormalities noted) Speech: Hesitant, Slow Language: Adequate Fund of Knowledge: Adequate Attention and Concentration: Adequate Memory: Unremarkable Mood: Other (mildly dysphoric) Affect: Flat Thought Process & Associations: Other (remains somewhat concrete) Thought Content: Other (perseverative on discharge) Hallucination Type: None Delusion Type: Other (guarded although no kati paranoia) Suicidal Ideation: No Suicidal Plan: No Suicidal Intention: No Homicidal Ideation: No Homicidal Plan: No Homicidal Intention: No Insight: Poor Judgment: Poor Results Labs Labs reviewed Vitals/IOs Vital Signs Date Time Temp Pulse Resp B/P (MAP) Pulse Ox O2 Delivery O2 Flow Rate FiO2 06/15/17 05:42 97.8 68 18 115/68 (84) 96 06/11/17 23:46 Room Air Assessment & Plan Problem List: (1) Adjustment disorder with disturbance of conduct ICD Codes: F43.24 - Adjustment disorder with disturbance of conduct Assessment & Plan Continue current psychotropics as ordered. Continue to monitor on the inpatient unit. Continue other medications and care as ordered. Justification for Cont. Inpt. Risk for decompensation in less restrictive environment Discharge Planning Per Aditya Badillo MD Jun 15, 2017 16:46
[2017-06-15] MEDS: ACETAMINOPHEN 325 MG TAB PO PRN (17:13)
[2017-06-15 18:13] VITALS: BP 104/59; PULSE 70; RESP 18; TEMP 98.8; O2SAT 98
[2017-06-15] MEDS: traZODone HCL 100 MG TAB PO SCH (21:04)
[2017-06-15] MEDS: QUEtiapine FUMARATE 200 MG TAB PO SCH (21:04)
[2017-06-16 05:40] VITALS: BP 93/55; PULSE 60; RESP 18; TEMP 97.1; O2SAT 95
[2017-06-16] MEDS: BENZTROPINE MESYLATE 2 MG TAB PO SCH ×2 (08:57→20:12)
[2017-06-16] MEDS: DIVALPROEX DR 500 MG TABEC PO SCH ×2 (08:57→20:12)
[2017-06-16] MEDS: FAMOTIDINE 20 MG TAB PO SCH ×2 (08:58→20:12)
[2017-06-16] MEDS: PARoxetine HCL 20 MG TAB PO SCH (08:58)
[2017-06-16] MEDS: ACETAMINOPHEN 325 MG TAB PO PRN ×2 (15:04→20:13)
--- NOTE | 2017-06-16 16:13 | HHI.PYPN ---
Subjective Remarks Patient seen for follow-up, chart reviewed. Discussion nursing staff reported the patient has been noted to view able to walk yesterday and had PT come for evaluation yesterday as well. Patient was found sitting in day room and chair noted to be superficially cooperative stating that he wanted to continue interview in day room. Patient states that he had been sleeping well, has difficulty eating and drinking a bowel movement, reports tolerating medications well. Patient states that he continues to have some difficulty with ambulation but admitted to be able to stand to go to the restroom but later stated he was not able to stand shower. Patient at this time denies any perceptual disturbances and requested to be discharged back to his home ([facility]). Review of Systems Except as stated in HPI: all other systems reviewed are Neg Mental Status Examination Appearance: Appropriate Consciousness: Alert Orientation: Person, Place Motor Activity: Other (no motor abnormalities noted) Speech: Hesitant, Slow Language: Adequate Fund of Knowledge: Adequate Attention and Concentration: Adequate Memory: Unremarkable Mood: Other (mildly dysphoric) Affect: Flat Thought Process & Associations: Other (remains somewhat concrete) Thought Content: Other (perseverative on discharge) Hallucination Type: None Delusion Type: Other (guarded although no kati paranoia) Suicidal Ideation: No Suicidal Plan: No Suicidal Intention: No Homicidal Ideation: No Homicidal Plan: No Homicidal Intention: No Insight: Poor Judgment: Poor Results Vitals/IOs Vital Signs Date Time Temp Pulse Resp B/P (MAP) Pulse Ox O2 Delivery O2 Flow Rate FiO2 06/16/17 05:40 97.1 60 18 93/55 (58) 95 Assessment & Plan Problem List: (1) Adjustment disorder with disturbance of conduct ICD Codes: F43.24 - Adjustment disorder with disturbance of conduct Assessment & Plan Patient at this time continues to be noted to be guarded, with no behavioral disturbances since having been moved to 2700 unit, tolerating medications well. Patient continues to endorse somatic complaints of having difficulty with ambulation although noted to be able to stand or walk at times by staff. Patient requesting to return back to [facility] but was encouraged to participate with physical therapy to be able to regain his ambulation. Patient likely endorsing difficulty with walking as being behavioral. We'll continue to monitor mood and behavior. Discharge planning in progress Justification for Cont. Inpt. At risk for further decompensation at lower level of care Discharge Planning To be determined Martinez Chacon MD Jun 16, 2017 16:12
[2017-06-16 16:47] VITALS: BP 115/77; PULSE 77; RESP 18; TEMP 97.7; O2SAT 100
[2017-06-16] MEDS: QUEtiapine FUMARATE 200 MG TAB PO SCH (20:12)
[2017-06-16] MEDS: traZODone HCL 100 MG TAB PO SCH (20:12)
[2017-06-17 06:11] VITALS: BP 92/54; PULSE 61; RESP 18; TEMP 97.8; O2SAT 97
[2017-06-17] MEDS: PARoxetine HCL 20 MG TAB PO SCH (08:56)
[2017-06-17] MEDS: BENZTROPINE MESYLATE 2 MG TAB PO SCH ×2 (08:56→19:54)
[2017-06-17] MEDS: FAMOTIDINE 20 MG TAB PO SCH ×2 (08:56→19:54)
[2017-06-17] MEDS ORDERED: DIVALPROEX DR 500 MG TABEC PO SCH (09:00)
[2017-06-17] MEDS: ACETAMINOPHEN 325 MG TAB PO PRN ×3 (09:17→17:38)
[2017-06-17 16:45] VITALS: BP 122/72; PULSE 70; RESP 18; TEMP 97.9; O2SAT 98
--- NOTE | 2017-06-17 17:36 | HHI.PYPN ---
Subjective Remarks Patient seen for follow-up, chart reviewed. Patient presented [facility] which he was retained for involuntary admission. He was later seen sitting in day room but observed to be walking on the unit with short steps almost shuffling gait but also observed with normal stride when he felt no one was observing. He states wanting to return back to his [facility] and mentions that he is able to walk yet still presents having some difficulty. He denies any perceptual disturbances, denies any mood symptoms or perceptual disturbances. Review of Systems Except as stated in HPI: all other systems reviewed are Neg Mental Status Examination Appearance: Appropriate Consciousness: Alert Orientation: Person, Place Motor Activity: Other (no motor abnormalities noted) Speech: Hesitant, Slow Language: Adequate Fund of Knowledge: Adequate Attention and Concentration: Adequate Memory: Unremarkable Mood: Other ("alright") Affect: Flat Thought Process & Associations: Other (remains somewhat concrete) Thought Content: Other (perseverative on discharge) Hallucination Type: None Delusion Type: Other (guarded although no kati paranoia) Suicidal Ideation: No Suicidal Plan: No Suicidal Intention: No Homicidal Ideation: No Homicidal Plan: No Homicidal Intention: No Insight: Poor Judgment: Poor Results Labs labs reviewed Test 06/17/17 06:32 Valproic Acid (Depakene) Level 55 MCG/ML Vitals/IOs Vital Signs Date Time Temp Pulse Resp B/P (MAP) Pulse Ox O2 Delivery O2 Flow Rate FiO2 06/17/17 16:45 97.9 70 18 122/72 (89) 98 Assessment & Plan Problem List: (1) Adjustment disorder with disturbance of conduct ICD Codes: F43.24 - Adjustment disorder with disturbance of conduct Assessment & Plan Patient with concrete thinking as he has intellectual deficits but also with poor impulse control. VPA level has dropped and now in lower range of therapeutic levels. Will increase Depakote to 1000mg PO BID for mood stabilization. Continue rest of medications. Continue to monitor mood and behavior. PT to continue sessions. Discharge planning in progress. Justification for Cont. Inpt. At risk for further decompensation if at lower level of care. Discharge Planning Back to [facility] Martinez Chacon MD Jun 17, 2017 17:36
[2017-06-17] MEDS: DIVALPROEX DR 500 MG TABEC PO SCH (19:55)
[2017-06-17] MEDS: traZODone HCL 100 MG TAB PO SCH (19:55)
[2017-06-17] MEDS: QUEtiapine FUMARATE 200 MG TAB PO SCH (19:55)
[2017-06-17] MEDS ORDERED: DIVALPROEX SODIUM DELAYED RELEASE 250 MG TAB PO SCH (21:00)
[2017-06-18 05:39] VITALS: BP 106/62; PULSE 58; RESP 16; TEMP 96.7; O2SAT 96
[2017-06-18] MEDS ORDERED: DIVALPROEX SODIUM DELAYED RELEASE 250 MG TAB PO SCH (09:00)
[2017-06-18] MEDS: DIVALPROEX SODIUM DELAYED RELEASE 250 MG TAB PO SCH (09:13)
[2017-06-18] MEDS: PARoxetine HCL 20 MG TAB PO SCH (09:13)
[2017-06-18] MEDS: BENZTROPINE MESYLATE 2 MG TAB PO SCH ×2 (09:13→20:04)
[2017-06-18] MEDS: FAMOTIDINE 20 MG TAB PO SCH ×2 (09:13→20:04)
--- NOTE | 2017-06-18 16:10 | HHI.PYPN ---
Subjective Remarks Patient seen for follow, chart reviewed. Discussion nursing staff reported the patient yesterday was noted to be banging on a window yesterday but did not require ETO's and was able to be redirected. Patient was found walking on the unit today again with some shuffling gait when being observed but noted to be calm and cooperative. He was today. Patient states feeling "okay" continues with concrete thought process due to baseline low to moderate intellectual deficits. Patient denies any physical complaints at this time and reports being able to walk better today. Patient denies any perceptual disturbances or delusions at this time. Review of Systems Except as stated in HPI: all other systems reviewed are Neg Mental Status Examination Appearance: Appropriate Consciousness: Alert Orientation: Person, Place Motor Activity: Other (no motor abnormalities noted) Speech: Hesitant, Slow Language: Adequate Fund of Knowledge: Adequate Attention and Concentration: Adequate Memory: Unremarkable Mood: Other ("alright") Affect: Flat Thought Process & Associations: Other (remains somewhat concrete) Thought Content: Other (perseverative on discharge) Hallucination Type: None Delusion Type: Other (guarded although no kati paranoia) Suicidal Ideation: No Suicidal Plan: No Suicidal Intention: No Homicidal Ideation: No Homicidal Plan: No Homicidal Intention: No Insight: Poor Judgment: Poor Results Vitals/IOs Vital Signs Date Time Temp Pulse Resp B/P (MAP) Pulse Ox O2 Delivery O2 Flow Rate FiO2 06/18/17 05:39 96.7 58 16 106/62 (60) 96 Assessment & Plan Problem List: (1) Adjustment disorder with disturbance of conduct ICD Codes: F43.24 - Adjustment disorder with disturbance of conduct Assessment & Plan Patient this time has had no behavioral disturbances Reichart ETO but was required to be redirected yesterday after becoming somewhat agitated and banging on nurse's window. Patient was encouraged to maintain good behavioral control. Patient had Depakote dose increased yesterday, we will continue current regimen and will follow up with valproic acid levels after current dose has reached steady state. Continue to monitor mood and behavior. Continue to have physical therapy work with patient. Discharge planning in progress. Justification for Cont. Inpt. At risk for further decompensation if at lower level of care Discharge Planning Patient return back to his shelter once psychiatrically stable. Martinez Chacon MD Jun 18, 2017 16:10
[2017-06-18 18:41] VITALS: BP 119/73; PULSE 77; RESP 17; TEMP 97.5; O2SAT 98
[2017-06-18] MEDS: QUEtiapine FUMARATE 200 MG TAB PO SCH (20:04)
[2017-06-18] MEDS: DIVALPROEX DR 500 MG TABEC PO SCH (20:04)
[2017-06-18] MEDS: traZODone HCL 100 MG TAB PO SCH (20:04)
[2017-06-18] MEDS: ACETAMINOPHEN 325 MG TAB PO PRN (20:10)
[2017-06-19 06:05] VITALS: BP 98/61; PULSE 65; RESP 16; TEMP 97.3; O2SAT 96
[2017-06-19] MEDS: DIVALPROEX SODIUM DELAYED RELEASE 250 MG TAB PO SCH (09:26)
[2017-06-19] MEDS: FAMOTIDINE 20 MG TAB PO SCH ×2 (09:26→20:57)
[2017-06-19] MEDS: BENZTROPINE MESYLATE 2 MG TAB PO SCH ×2 (09:26→20:57)
[2017-06-19] MEDS: PARoxetine HCL 20 MG TAB PO SCH (09:26)
--- NOTE | 2017-06-19 12:13 | HHI.PYPN ---
Subjective Remarks Pt seen and discussed with staff. He has been compliant with care. Staff report that pt has been stating that he cannot move but when sweets are offered, he easily gets up and ambulates without difficulty. He is bizarre at times and is guarded. No SI/Hi Mental Status Examination Appearance: Appropriate Consciousness: Alert Orientation: Person, Place Motor Activity: Other (no motor abnormalities noted) Speech: Hesitant, Slow Language: Adequate Fund of Knowledge: Adequate Attention and Concentration: Adequate Memory: Unremarkable Mood: Other ("alright") Affect: Flat Thought Process & Associations: Other (remains somewhat concrete) Thought Content: Other (perseverative on discharge) Hallucination Type: None Delusion Type: Other (guarded) Suicidal Ideation: No Suicidal Plan: No Suicidal Intention: No Homicidal Ideation: No Homicidal Plan: No Homicidal Intention: No Insight: Poor Judgment: Poor Results Vitals/IOs Vital Signs Date Time Temp Pulse Resp B/P (MAP) Pulse Ox O2 Delivery O2 Flow Rate FiO2 06/19/17 06:05 97.3 65 16 98/61 (73) 96 Assessment & Plan Problem List: (1) Adjustment disorder with disturbance of conduct ICD Codes: F43.24 - Adjustment disorder with disturbance of conduct Assessment & Plan Continue current tx plan. Estimated LOS: days Justification for Cont. Inpt. risk of decompensation Jennifer Saunders MD Jun 19, 2017 12:13
[2017-06-19 17:21] VITALS: BP 113/68; PULSE 72; RESP 16; TEMP 97.9; O2SAT 98
[2017-06-19] MEDS: traZODone HCL 100 MG TAB PO SCH (20:57)
[2017-06-19] MEDS: QUEtiapine FUMARATE 200 MG TAB PO SCH (20:57)
[2017-06-19] MEDS: DIVALPROEX DR 500 MG TABEC PO SCH (20:57)
[2017-06-20 05:43] VITALS: BP 114/77; PULSE 57; RESP 16; TEMP 97.9; O2SAT 95
[2017-06-20] MEDS: FAMOTIDINE 20 MG TAB PO SCH ×2 (09:34→20:14)
[2017-06-20] MEDS: DIVALPROEX SODIUM DELAYED RELEASE 250 MG TAB PO SCH (09:34)
[2017-06-20] MEDS: BENZTROPINE MESYLATE 2 MG TAB PO SCH ×2 (09:34→20:13)
[2017-06-20] MEDS: PARoxetine HCL 20 MG TAB PO SCH (09:34)
--- NOTE | 2017-06-20 11:23 | HHI.PYPN ---
Subjective Remarks Pt seen and discussed with staff. He became agitated yesterday afternoon and spit at MHT, colored on jeffries and lunged aggressively at staff during attempts to deescalate. He was given ativan IM for safety which calmed pt. Today, he has spent most of day in his room. He is awake and alert, but refused to come out for meals. He denies pain or discomfort. He has been compliant with medications and denies side effects. Mental Status Examination Appearance: Appropriate Consciousness: Alert Orientation: Person, Place Motor Activity: Other (no motor abnormalities noted) Speech: Hesitant, Slow Language: Adequate Fund of Knowledge: Adequate Attention and Concentration: Adequate Memory: Unremarkable Mood: Other ("alright") Affect: Flat Thought Process & Associations: Other (remains somewhat concrete) Thought Content: Other (perseverative on discharge) Hallucination Type: None Delusion Type: Other (guarded) Suicidal Ideation: No Suicidal Plan: No Suicidal Intention: No Homicidal Ideation: No Homicidal Plan: No Homicidal Intention: No Insight: Poor Judgment: Poor Results Vitals/IOs Vital Signs Date Time Temp Pulse Resp B/P (MAP) Pulse Ox O2 Delivery O2 Flow Rate FiO2 06/20/17 05:43 97.9 57 16 114/77 (89) 95 Assessment & Plan Problem List: (1) Adjustment disorder with disturbance of conduct ICD Codes: F43.24 - Adjustment disorder with disturbance of conduct Assessment & Plan Continue current tx plan. Estimated LOS: days Justification for Cont. Inpt. recent agitation Jennifer Saunders MD Jun 20, 2017 11:23
[2017-06-20 16:00] VITALS: BP 122/75; PULSE 75; RESP 17; TEMP 97.9; O2SAT 96
[2017-06-20] MEDS: DIVALPROEX DR 500 MG TABEC PO SCH (20:13)
[2017-06-20] MEDS: QUEtiapine FUMARATE 200 MG TAB PO SCH (20:13)
[2017-06-20] MEDS: traZODone HCL 100 MG TAB PO SCH (20:14)
[2017-06-21 05:43] VITALS: BP 114/60; PULSE 57; RESP 16; TEMP 97.9; O2SAT 100
[2017-06-21] MEDS: FAMOTIDINE 20 MG TAB PO SCH ×2 (09:09→21:27)
[2017-06-21] MEDS: BENZTROPINE MESYLATE 2 MG TAB PO SCH ×2 (09:09→21:26)
[2017-06-21] MEDS: PARoxetine HCL 20 MG TAB PO SCH (09:09)
[2017-06-21] MEDS: DIVALPROEX SODIUM DELAYED RELEASE 250 MG TAB PO SCH (09:10)
[2017-06-21] MEDS: LORazepam 1 MG TAB PO PRN (14:25)
--- NOTE | 2017-06-21 15:42 | HHI.PYPN ---
Subjective Remarks Patient is here for follow, chart reviewed. Discussion nursing staff reported the patient had refused breakfast medications and was irritable this morning and later was noted to be upset and banging under station window and received Ativan 1 and was able to be redirected. Patient was found sitting in hospital chair B, cooperative, with limited interview and interaction to be very concrete thought process. Patient was asked if he was discharged home but reminded the patient must maintain good behavioral control as well as being able to ambulate normally which he agreed. Patient was advised that he will require another blood draw in the morning prior to his first Depakote dose to get an accurate level and acknowledged. Review of Systems Except as stated in HPI: all other systems reviewed are Neg Mental Status Examination Appearance: Appropriate Consciousness: Alert Orientation: Person, Place Motor Activity: Other (no motor abnormalities noted) Speech: Hesitant, Slow Language: Adequate Fund of Knowledge: Adequate Attention and Concentration: Adequate Memory: Unremarkable Mood: Other ("alright") Affect: Appropriate, Flat Thought Process & Associations: Other (concrete) Thought Content: Other (perseverative on discharge) Hallucination Type: None Delusion Type: Other (guarded) Suicidal Ideation: No Suicidal Plan: No Suicidal Intention: No Homicidal Ideation: No Homicidal Plan: No Homicidal Intention: No Insight: Fair Judgment: Impulsive Results Labs Labs reviewed also noted that lab was done after patient's first Depakote dose. Test 06/21/17 10:10 Valproic Acid (Depakene) Level 137 MCG/ML Vitals/IOs Vital Signs Date Time Temp Pulse Resp B/P (MAP) Pulse Ox O2 Delivery O2 Flow Rate FiO2 06/21/17 05:43 97.9 57 16 114/60 (78) 100 Assessment & Plan Problem List: (1) Adjustment disorder with disturbance of conduct ICD Codes: F43.24 - Adjustment disorder with disturbance of conduct Assessment & Plan Patient noted to have some irritability early this morning along with verbal threats to staff and attempted to be assisted and required redirection. Patient acknowledged the patient was have better behavioral control prior to his discharge. Patient's VPA level was supratherapeutic but lab was drawn after patient received first dose and therefore inaccurate. We will order another Depakote level timed at 5 AM prior to his first dose tomorrow to acquire a inaccurate level. Continue current treatment. Continue to monitor mood and behavior. Discharge planning in progress. Justification for Cont. Inpt. At risk of further decompensation at lower level of care Discharge Planning Patient return back to his intermediate when psychiatrically stable. Martinez Chacon MD Jun 21, 2017 15:42
[2017-06-21 17:27] VITALS: BP 107/59; PULSE 79; RESP 18; TEMP 98.1; O2SAT 100
[2017-06-21] MEDS: DIVALPROEX DR 500 MG TABEC PO SCH (21:26)
[2017-06-21] MEDS: traZODone HCL 100 MG TAB PO SCH (21:26)
[2017-06-21] MEDS: QUEtiapine FUMARATE 200 MG TAB PO SCH (21:27)
[2017-06-22 05:36] VITALS: BP 106/59; PULSE 61; RESP 18; TEMP 98.3; O2SAT 98
[2017-06-22] MEDS: FAMOTIDINE 20 MG TAB PO SCH ×2 (08:44→20:50)
[2017-06-22] MEDS: PARoxetine HCL 20 MG TAB PO SCH (08:44)
[2017-06-22] MEDS: BENZTROPINE MESYLATE 2 MG TAB PO SCH ×2 (08:45→20:50)
--- NOTE | 2017-06-22 13:48 | HHI.PYPN ---
Subjective Remarks Patient seen for follow-up, chart reviewed. Discussion nursing staff reported that lab did not draw patient's blood work this morning and meds have continued to be held until Depakote level could be drawn. Patient was also noted to be very somnolent this morning refusing breakfast and only in a hospital bed. Patient was found lying down noted to be somewhat somnolent but reactive to interview and was able to sit up and be assisted to the day room to be able to have lunch. Noted to have concrete thinking which is his baseline reported feeling very tired and requested to be discharged but was reminded the patient must be able to ambulate effectively prior to be discharged which he acknowledged. Review of Systems Except as stated in HPI: all other systems reviewed are Neg Mental Status Examination Appearance: Appropriate Consciousness: Somnolent Orientation: Person, Place Motor Activity: Other (no motor abnormalities noted) Speech: Hesitant, Slow Language: Adequate Fund of Knowledge: Adequate Attention and Concentration: Adequate Memory: Unremarkable Mood: Other ("alright") Affect: Appropriate, Flat Thought Process & Associations: Other (concrete) Thought Content: Other (perseverative on discharge) Hallucination Type: None Delusion Type: Other (guarded) Suicidal Ideation: No Suicidal Plan: No Suicidal Intention: No Homicidal Ideation: No Homicidal Plan: No Homicidal Intention: No Insight: Fair Judgment: Impulsive Results Vitals/IOs Vital Signs Date Time Temp Pulse Resp B/P (MAP) Pulse Ox O2 Delivery O2 Flow Rate FiO2 06/22/17 05:36 98.3 61 18 106/59 (75) 98 Assessment & Plan Problem List: (1) Adjustment disorder with disturbance of conduct ICD Codes: F43.24 - Adjustment disorder with disturbance of conduct Assessment & Plan The patient this time has not had any behavioral disturbances recently but noted to be somewhat sedated throughout the evening and this morning. It is possible the patient to increase his Depakote level could contribute to his current sedation but unclear of patient's VPA level was bloodshot and has not been done accurately prior to his first dose and pending current VPA level now. Increase addition had been noticed upon increase of dose therefore will decrease Depakote level to 7:50 AM/1000 mg at bedtime. Continue rest of medications continue pending VPA levels, BMP, ammonia level, and CBC. Continue to monitor with behavior. Continue to encourage patient to participate in groups and activities. Discharge planning in progress Justification for Cont. Inpt. At risk for further decompensation if at lower level of care Discharge Planning [facility] Martinez Chacon MD Jun 22, 2017 13:48
[2017-06-22 16:34] LABS: ALBUMIN 3.9 GM/DL (3.4-5.0); ALT (GPT) 21 U/L (12-78); AST (GOT) 43 U/L (15-37); BICARBONATE 24.9 MEQ/L (21.0-32.0); BLOOD UREA NITROGEN 11 MG/DL (7-18); CALCIUM 8.5 MG/DL (8.5-10.1); CHLORIDE 103 MEQ/L (98-107); CREATININE 0.74 MG/DL (0.60-1.30); GLOMERULAR FILTRATION RATE 120 ML/MIN (>89); GLUCOSE,RANDOM 90 MG/DL (74-106); SODIUM (NA) 134 MEQ/L (136-145)
[2017-06-22 16:36] LABS: ALKALINE PHOSPHATASE 71 U/L (45-117); TOTAL BILIRUBIN ADULT 1.1 MG/DL (0.2-1.0); TOTAL PROTEIN 8.1 GM/DL (6.4-8.2)
[2017-06-22 18:24] VITALS: BP 108/64; PULSE 73; RESP 18; TEMP 98.1; O2SAT 73
[2017-06-22] MEDS: DIVALPROEX SODIUM E.R. 250 MG TAB PO SCH (20:45)
[2017-06-22] MEDS: traZODone HCL 100 MG TAB PO SCH (20:50)
[2017-06-22] MEDS: QUEtiapine FUMARATE 200 MG TAB PO SCH (20:50)
[2017-06-22 22:15] LABS: AUTOMATED NEUTROPHIL # 3.8 TH/MM3 (1.8-7.7); BASOPHIL % 0.5 % (0.0-2.0); EOSINOPHIL # 0.1 TH/MM3 (0-0.4); EOSINOPHIL % 1.5 % (0.0-4.0); HEMATOCRIT 43.2 % (39.0-51.0); HEMOGLOBIN 15.2 GM/DL (13.0-17.0); LYMPH % 24.9 % (9.0-44.0); LYMPHOCYTE # 1.5 TH/MM3 (1.0-4.8); MEAN CELL VOLUME 93.3 FL (80.0-100.0); MEAN CORPUSCULAR HEMOGLOBIN 32.7 PG (27.0-34.0); MEAN CORPUSCULAR HGB CONC 35.1 % (32.0-36.0); MEAN PLATELET VOLUME 7.7 FL (7.0-11.0); MONO % 9.1 % (0.0-8.0); MONOCYTE # 0.5 TH/MM3 (0-0.9); PLATELET COUNT 171 TH/MM3 (150-450); RED BLOOD COUNT 4.63 MIL/MM3 (4.50-5.90); RED CELL DISTRIBUTION WIDTH 13.3 % (11.6-17.2); WHITE BLOOD COUNT 5.9 TH/MM3 (4.0-11.0)
[2017-06-23 06:00] VITALS: BP 103/60; PULSE 61; RESP 16; TEMP 97.1; O2SAT 95
[2017-06-23] MEDS ORDERED: DIVALPROEX SODIUM DELAYED RELEASE 250 MG TAB PO SCH (09:00)
[2017-06-23] MEDS: PARoxetine HCL 20 MG TAB PO SCH (10:03)
[2017-06-23] MEDS: FAMOTIDINE 20 MG TAB PO SCH ×2 (10:03→20:30)
[2017-06-23] MEDS: BENZTROPINE MESYLATE 2 MG TAB PO SCH ×2 (10:03→20:30)
[2017-06-23] MEDS: DIVALPROEX SODIUM DELAYED RELEASE 250 MG TAB PO SCH (10:20)
--- NOTE | 2017-06-23 14:34 | HHI.PYPN ---
Subjective Remarks Patient seen for follow-up, chart reviewed. Discussion with nursing staff reported the patient has been more alert and able to ambulate more. Patient was found sitting in day room eating lunch noted B, cooperative and able to engage in interview effectively. Patient continued to concrete thinking which is baseline for this patient. Patient agreed to continue to ambulate on his own as well as participate and cooperate with staff. Patient denies any perceptual disturbances. Denies any delusions. Review of Systems Except as stated in HPI: all other systems reviewed are Neg Mental Status Examination Appearance: Appropriate Consciousness: Alert Orientation: Person, Place Motor Activity: Other (no motor abnormalities noted) Speech: Hesitant, Slow Language: Adequate Fund of Knowledge: Adequate Attention and Concentration: Adequate Memory: Unremarkable Mood: Other ("alright") Affect: Appropriate, Flat Thought Process & Associations: Other (concrete) Thought Content: Other (perseverative on discharge) Hallucination Type: None Delusion Type: Other (guarded) Suicidal Ideation: No Suicidal Plan: No Suicidal Intention: No Homicidal Ideation: No Homicidal Plan: No Homicidal Intention: No Insight: Fair Judgment: Impulsive Results Labs labs reviewed Test 06/22/17 15:39 06/22/17 21:45 Blood Urea Nitrogen 11 MG/DL Creatinine 0.74 MG/DL Random Glucose 90 MG/DL Total Protein 8.1 GM/DL Albumin 3.9 GM/DL Calcium Level 8.5 MG/DL Alkaline Phosphatase 71 U/L Aspartate Amino Transf (AST/SGOT) 43 U/L Alanine Aminotransferase (ALT/SGPT) 21 U/L Total Bilirubin 1.1 MG/DL Sodium Level 134 MEQ/L Potassium Level 4.9 MEQ/L Chloride Level 103 MEQ/L Carbon Dioxide Level 24.9 MEQ/L Anion Gap 6 MEQ/L Estimat Glomerular Filtration Rate 120 ML/MIN Ammonia 41 MCMOL/L Total Creatine Kinase 201 U/L Valproic Acid (Depakene) Level 129 MCG/ML White Blood Count 5.9 TH/MM3 Red Blood Count 4.63 MIL/MM3 Hemoglobin 15.2 GM/DL Hematocrit 43.2 % Mean Corpuscular Volume 93.3 FL Mean Corpuscular Hemoglobin 32.7 PG Mean Corpuscular Hemoglobin Concent 35.1 % Red Cell Distribution Width 13.3 % Platelet Count 171 TH/MM3 Mean Platelet Volume 7.7 FL Neutrophils (%) (Auto) 64.0 % Lymphocytes (%) (Auto) 24.9 % Monocytes (%) (Auto) 9.1 % Eosinophils (%) (Auto) 1.5 % Basophils (%) (Auto) 0.5 % Neutrophils # (Auto) 3.8 TH/MM3 Lymphocytes # (Auto) 1.5 TH/MM3 Monocytes # (Auto) 0.5 TH/MM3 Eosinophils # (Auto) 0.1 TH/MM3 Basophils # (Auto) 0.0 TH/MM3 CBC Comment DIFF FINAL Differential Comment Vitals/IOs Vital Signs Date Time Temp Pulse Resp B/P (MAP) Pulse Ox O2 Delivery O2 Flow Rate FiO2 06/23/17 06:00 97.1 61 16 103/60 (74) 95 Assessment & Plan Problem List: (1) Adjustment disorder with disturbance of conduct ICD Codes: F43.24 - Adjustment disorder with disturbance of conduct Assessment & Plan Patient this time noted to be cooperative with staff although at times seen ambulating slowly more alert and participating in meals. We will continue current Depakote dose several order VPA level tomorrow in the a.m. Continue current treatment regimen. Continue to monitor mood and behavior. Discharge planning in progress. Justification for Cont. Inpt. At risk for further decompensation if at lower level of care. Discharge Planning [facility]. Martinez Chacon MD Jun 23, 2017 14:34
[2017-06-23 17:35] VITALS: BP 110/69; PULSE 80; RESP 18; TEMP 97.9; O2SAT 98
[2017-06-23] MEDS: traZODone HCL 100 MG TAB PO SCH (20:30)
[2017-06-23] MEDS: QUEtiapine FUMARATE 200 MG TAB PO SCH (20:31)
[2017-06-23] MEDS: DIVALPROEX SODIUM E.R. 250 MG TAB PO SCH (20:31)
[2017-06-24 06:04] VITALS: BP 102/56; PULSE 55; RESP 16; TEMP 96.3; O2SAT 98
[2017-06-24] MEDS: PARoxetine HCL 20 MG TAB PO SCH (08:34)
[2017-06-24] MEDS: DIVALPROEX SODIUM DELAYED RELEASE 250 MG TAB PO SCH (08:34)
[2017-06-24] MEDS: FAMOTIDINE 20 MG TAB PO SCH (08:34)
[2017-06-24] MEDS: BENZTROPINE MESYLATE 2 MG TAB PO SCH (08:34)
[2017-06-24] MEDS ORDERED: SERO200T PO (11:16)
[2017-06-24] MEDS ORDERED: PARO20TA2 PO (11:16)
[2017-06-24] MEDS ORDERED: TRAZ100T10 PO (11:16)
[2017-06-24] MEDS ORDERED: FAMO20TA2 PO (11:16)
[2017-06-24] MEDS ORDERED: Benztropine PO (11:16)
[2017-06-24] MEDS ORDERED: DIVA500T PO (11:16)
[2017-06-24] MEDS ORDERED: DIVA250ER PO (11:16)
--- NOTE | 2017-06-24 11:17 | HHI.DS ---
Psychiatry Discharge Summary Inpatient Psychiatric care?: Yes Advance Directive: No Reason Not Provided: Due to Patient Condition Mental Health AdvanceDirective: No Health Care Proxy: No Admission Admission Date Jun 11, 2017 at 23:32 Admission Diagnosis: (1) Schizoaffective disorder ICD Code: F25.9 - Schizoaffective disorder, unspecified Brief History The patient is a 36 year-old man, domiciled in a residential, [facility], single, unemployed, supported by [facility], with psychiatric history of mild to moderate intellectual disability, schizophrenia, adjustment disorder with disturbance of conduct, aggressive behavior in the past, psychiatric hospitalizations, last hospitalization was here in [place] in November 2016, documentation was reviewed, he denies previous suicidal attempts, no self injury behavior, the patient has outpatient psychiatric care with visiting psychiatrist, he is on Depakote 500 mg twice a day, Seroquel 200 mg at bedtime, trazodone 100 mg, Paxil 20 mg, benztropine 2 mg twice a day, patient reports good compliant with his medications, his Depakote levels are therapeutic, 68, she has no significant medical history,who was brought in under the [employer] act after threatening staff and other group residence with a stick and hammer. On psychiatric evaluation patient is found sleeping in his bed. He is arousable, but poorly cooperative, patient is very superficial and distant during my evaluation. He perseverates in asking to be discharged and sent back home. He says that he does not remember the reason he was sent to the hospital. He says that he was "doing nothing when the police shows up". For most of our questions the patient answer in monosyllables. He denies depression, he denies anxiety, he denies albin and psychosis. He denies suicidal or homicidal ideation, he denies visual and auditory hallucinations. As per conversation with nursing charge, the patient has been mostly calm, cooperative, isolated in his room, he has been compliant with his medications so far no significant side effects reported. The patient is partially oriented, he knows that he is in the hospital, doesn't know the name, he knows is 2018. Tobacco Use In Past 30 Days: No Tobacco Past 30 Days Alcohol Use: Never Hospital Course The patient is a 36 year-old man, domiciled in a residential, [facility], single, unemployed, supported by [employer], with psychiatric history of mild to moderate intellectual disability, schizophrenia, adjustment disorder with disturbance of conduct, aggressive behavior in the past, psychiatric hospitalizations, last hospitalization was here in [place] in November 2016, he denies previous suicidal attempts, no self injury behavior, has no significant medical history, who was brought in under the [employer] act after threatening staff and other group residence with a stick and hammer and admitted to the inpatient psychiatry unit for further evaluation and management. Patient was started on valproic acid and titrated to 1000mg PO BID initially but decreased to 500mg AM/ 750mg HS, benztropine 2mg PO BID, quetiapine 200mg PO HS, and trazodone 100mg PO HS which patient tolerated well. He was noted to be acutely psychotic, with poor impulse control, poor sleep but with continued treatment adjustments patient began to have stabilization of mood, not requiring ETOs, redirectible, but continued to have some somatic behavior of having difficulty with walking. He had poor insight into his symptoms but was adherent to treatment. Patient denied any SI nor any HI during hospitalization but continued with the somatic behavior of having difficulty with walking but toward discharge was ambulating without assistance. Upon discharge patient stated that he was feeling alright and was encouraged to continue treatment to avoid re-hospitalization. He denied any SI, HI or perceptual disturbances. Patient agreed to continue medication regimen and outpatient follow up for continuity of care. I have counseled the patient regarding warning signs for need to return to the psychiatric emergency room as part of a general safety plan. Patient advised to call 911 or go nearest ED in case of emergency. Patient agrees with plan. Results Blood Pressure 102 / 56 Vital Signs Date Time Temp Pulse Resp B/P (MAP) Pulse Ox O2 Delivery O2 Flow Rate FiO2 06/24/17 06:04 96.3 55 16 102/56 (71) 98 Laboratory Tests Test 06/22/17 15:39 06/22/17 21:45 06/24/17 05:45 Aspartate Amino Transf (AST/SGOT) 43 U/L (15-37) Total Bilirubin 1.1 MG/DL (0.2-1.0) Sodium Level 134 MEQ/L (136-145) Ammonia 41 MCMOL/L (11-32) Valproic Acid (Depakene) Level 129 MCG/ML (50-100) Monocytes (%) (Auto) 9.1 % (0.0-8.0) Laboratory Results Test 06/12/17 11:30 06/24/17 05:45 Hemoglobin A1c 4.8 % (4.3-6.0) Valproic Acid (Depakene) Level 81 MCG/ML (50-100) Summary of Procedures none Pending results at discharge: No Medications # of Antipsychotic meds at D/C: 1 Approp Antipsych med options 1 - Minimum of three failed multiple trials of monotherapy. 2 - Documented plan to taper to monotherapy due to previous use of multiple meds OR cross-taper in progress at D/C. 3 - Documentation of augmentation of Clozapine. 4 - Justification other than those listed in allowable values 1-3, document here : Discharge Discharge Date: Jun 24, 2017 Discharge Diagnosis: (1) Schizoaffective disorder ICD Code: F25.9 - Schizoaffective disorder, unspecified Status: Chronic Pt Condition on Discharge: Stable Discharge Disposition: Discharge Home Discharge Instructions Diet Instructions: Heart Healthy Diet Activities you can perform: Regular-No Restrictions Discharge Time > 30 minutes Mental Status Examination Appearance: Appropriate Consciousness: Alert Orientation: Person, Place Motor Activity: Other (no motor abnormalities noted) Speech: Hesitant, Slow Language: Adequate Fund of Knowledge: Adequate Attention and Concentration: Adequate Memory: Unremarkable Mood: Other ("alright") Affect: Appropriate, Flat Thought Process & Associations: Other (concrete) Thought Content: Other (perseverative on discharge) Hallucination Type: None Delusion Type: Other (guarded) Suicidal Ideation: No Suicidal Plan: No Suicidal Intention: No Homicidal Ideation: No Homicidal Plan: No Homicidal Intention: No Insight: Fair Judgment: Impulsive Discharge/Advance Care Plan Health Problems: (1) Adjustment disorder with disturbance of conduct Goals to promote your health * To prevent worsening of your condition and complications * To maintain your health at the optimal level Directions to meet your goals Take your medications as prescribed Follow your dietary instruction Follow activity as directed Keep your appointments as scheduled Take your immunizations and boosters as scheduled If your symptoms worsen call your PCP, if no PCP go to Urgent Care Center or Emergency Room For 30/11 questions related to your inpatient stay or results of tests pending at discharge, please contact Dr. Martinez Chacon at Smoking is Dangerous to Your Health. Avoid second hand smoking Martinez Chacon MD Jun 24, 2017 11:17
== END 2017-06-24 16:56 | disposition home or self-care (01) | DRG 885 ==
LOC: NEPD 14:33 → NEDA 23:32 → H260 06-12 00:15 → H270 06-12 21:45
PROVIDERS: ADMIT Student in an Organized Health Care Education/Training Program; ATTEND Student in an Organized Health Care Education/Training Program
DX: F25.9 Schizoaffective disorder, unspecified (principal); F43.24 Adjustment disorder with disturbance of conduct; F71 Moderate intellectual disabilities; F17.210 Nicotine dependence, cigarettes, uncomplicated; S80.211A Abrasion, right knee, initial encounter; Y35.93XA Legal intervention, means unspecified, suspect injured, initial encounter; R26.2 Difficulty in walking, not elsewhere classified
CPT/HCPCS: 80053; 80164; 80307; 82140; 82550; 83036; 84443; 85025; 99285; J2060; J3230